=== PATIENT | female | born 1980 | race Two or more races ===

== ENCOUNTER 2017-04-03 13:03 | Inpatient (IN) | payer BC ==
[2017-04-03] MEDS ORDERED: KETOROLAC TROMETHAMINE 10 MG TABLET PO ONE (13:50)
[2017-04-03 13:51] VITALS: BMI 20.5
[2017-04-03] MEDS ORDERED: diazePAM 2 MG TABLET PO ONE (13:53)
--- NOTE | 2017-04-03 13:55 | PDOC ---
History of Present Illness - General History Source: Patient, Family, Significant Other Exam Limitations: No Limitations - History of Present Illness Initial Comments: 04/03/17 13:55 36F with pmh of tubal ligation presents with lumbar pain after a fall on her buttocks after she tried to catch her who lost balance, around 10:45am She hasn't been able to stand since then. 04/03/17 14:05 Occurred: reports: this morning Pain Location: reports: back <Richardson Logan - Last Filed: 04/03/17 15:41> <Natacha Gooden - Last Filed: 04/03/17 18:30> - General Chief Complaint: Back Pain Stated Complaint: LOWER BACK PAIN Time Seen by Provider: 04/03/17 13:30 Past History - Past Medical History Other medical history: NONE - Surgical History Abdominal Surgery: Yes (, Tubal ligation 9 years ago) - Reproductive History Is Patient Now?: No Tubal Ligation: Yes (9yrs ago) - Psycho/Social/Smoking Cessation Hx Anxiety: No Suicidal Ideation: No Smoking History: Never smoked Have you smoked in the past 12 months: No Information on smoking cessation initiated: No Hx Alcohol Use: No Drug/Substance Use Hx: No Substance Use Type: None <Richardson Logan - Last Filed: 04/03/17 15:41> <Natacha Gooden - Last Filed: 04/03/17 18:30> - Past Medical History Allergies/Adverse Reactions: Allergies Allergy/AdvReac Type Severity Reaction Status Date / Time Penicillins Allergy Verified 04/03/17 13:27 Home Medications: Ambulatory Orders NK [No Known Home Medication] 04/03/17 Review of Systems - Review of Systems Is the patient limited Tristanian proficient: Yes Constitutional: No: Chills, Diaphoresis, Fever, Loss of Appetite HEENTM: No: Symptoms Reported, Eye Pain, Double Vision Respiratory: No: Symptoms reported, Cough Cardiac (ROS): No: Symptoms Reported, Syncope ABD/GI: No: Symptoms Reported, Constipated, Diarrhea, Nausea : No: Symptoms Reported Musculoskeletal: Yes: See HPI Neurological: No: Headache, Numbness, Tingling <Richardson Logan - Last Filed: 04/03/17 15:41> *Physical Exam - Vital Signs Last Vital Signs Temp Pulse Resp BP Pulse Ox 98.4 F 80 18 134/64 100 04/03/17 13:27 04/03/17 13:27 04/03/17 13:27 04/03/17 13:27 04/03/17 13:27 - Physical Exam General Appearance: Yes: Nourished, Appropriately Dressed, Apparent Distress HEENT: positive: EOMI, HARMONY, Normal ENT Inspection, Normal Voice Neck: positive: Normal Thyroid, Supple Respiratory/Chest: positive: Lungs Clear, Normal Breath Sounds. negative: Chest Tender, Respiratory Distress Cardiovascular: positive: Regular Rhythm, Regular Rate, S1, S2 Vascular Pulses: Carotid (R): 2+, Carotid (L): 2+, Dorsalis-Pedis (R): 2+, Doralis-Pedis (L): 2+ Gastrointestinal/Abdominal: positive: Normal Bowel Sounds, Flat, Soft. negative : Tender Musculoskeletal: positive: Vertebral Tenderness (L2 to L4 tender to palpation. No paraspinal tenderness) Extremity: positive: Normal Inspection. negative: Normal Range of Motion Neurologic: positive: Fully Oriented, Alert. negative: Numbness, Sensory Deficit (pt unable to perform leg raise b/l due to pain,unable to keep legs raised b/l no pain reported during passive leg raise. normal strength and ROM on adduction/abduction of b/l legs as well as on dorsi/plantar flexion. ) <Richardson Logan - Last Filed: 04/03/17 15:41> - Vital Signs Last Vital Signs Temp Pulse Resp BP Pulse Ox 98.4 F 80 18 134/64 100 04/03/17 13:27 04/03/17 13:27 04/03/17 13:27 04/03/17 13:27 04/03/17 13:27 <Natacha Gooden - Last Filed: 04/03/17 18:30> ED Treatment Course - Medications Given in the ED: ED Medications Discontinued Medications Generic Name Dose Route Start Last Admin Trade Name Noelq PRN Reason Stop Dose Admin Diazepam 2 mg 04/03/17 13:53 04/03/17 14:32 Valium - PO 04/03/17 13:54 Not Given ONCE ONE Diazepam 5 mg 04/03/17 14:02 04/03/17 14:40 Valium - PO 04/03/17 14:03 5 mg ONCE ONE Administration Ketorolac Tromethamine 20 mg 04/03/17 13:50 04/03/17 14:31 Toradol PO 04/03/17 13:51 Not Given ONCE ONE Ketorolac Tromethamine 30 mg 04/03/17 14:02 04/03/17 14:40 Toradol Injection - IM 04/03/17 14:03 30 mg ONCE ONE Administration Oxycodone/Acetaminophen 1 combo 04/03/17 15:26 04/03/17 15:31 Percocet 5/325 - PO 04/03/17 15:27 1 combo ONCE ONE Administration <Natacha Gooden - Last Filed: 04/03/17 18:30> Medical Decision Making - Medical Decision Making 04/03/17 14:16 36yo w/pmh of tubal ligation present to the ED with lumbar pain after fall on her buttocks from standing position with 's weight. Xray ordered for evaluation, ordered Toradol and Valium for pain management. 04/03/17 15:26 8/10 on pain reassessment. Percocet ordered. Still waiting for spine Xray report. <Richardson Logan - Last Filed: 04/03/17 15:41> *DC/Admit/Observation/Transfer - Discharge Dispostion Admit: Yes <Richardson Logan - Last Filed: 04/03/17 15:41> <Natacha Gooden - Last Filed: 04/03/17 18:30> Diagnosis at time of Disposition: L1 vertebral fracture
[2017-04-03] MEDS ORDERED: diazePAM 5 MG TABLET PO ONE (14:02)
[2017-04-03] MEDS ORDERED: KETOROLAC TROMETHAMINE 30 MG/1 ML VIAL IM ONE (14:02)
[2017-04-03] MEDS ORDERED: diazePAM 5 MG TABLET ONE (14:33)
[2017-04-03] MEDS ORDERED: KETOROLAC TROMETHAMINE 30 MG/1 ML VIAL ONE (14:33)
--- NOTE | 2017-04-03 15:13 | PDOC ---
Attending Attestation - Resident Resident Name: Richardson Logan - ED Attending Attestation I have performed the following: I have examined & evaluated the patient, The case was reviewed & discussed with the resident, I agree w/resident's findings & plan, Exceptions are as noted - HPI HPI: 04/03/17 15:13 36-year-old female with no past medical history presents with lumbar spine pain since this morning. The patient's had syncopized onto the patient fell on top of her. The patient went on her buttocks. Since then patient has been having significant amount of pain but denies any urinary bowel incontinence. States that she has difficulty moving secondary to pain. Came in for evaluation. - Physicial Exam PE: 04/03/17 15:24 GENERAL: Awake, alert, and fully oriented, in no acute distress. HEAD: No signs of trauma EYES: PERRLA, EOMI, sclera anicteric, conjunctiva clear ENT: Auricles normal inspection, hearing grossly normal, nares patent, oropharynx clear without exudates. NECK: Normal ROM, supple, no lymphadenopathy, JVD, or masses LUNGS: Breath sounds equal, clear to auscultation bilaterally. No wheezes, and no crackles HEART: Regular rate and rhythm, normal S1 and S2, no murmurs, rubs or gallops ABDOMEN: Soft, nontender, normoactive bowel sounds. No guarding, no rebound. No masses EXTREMITIES: Normal range of motion, no edema. No clubbing or cyanosis. No cords, erythema, or tenderness NEUROLOGICAL: Cranial nerves II through XII grossly intact. Normal speech, normal gait SKIN: Warm, Dry, normal turgor, no rashes or lesions noted. BACK: TTP lumbarspine approx L4-L5, no step offs appreciated - Medical Decision Making 04/03/17 15:26 We'll need to obtain imaging for the lumbar spine to rule out fracture. Pain control reassess. Patient has a history of tubal ligation insists that she is not . If the pain is not control, we'll need to consider CT scan the lumbar spine. Pain control reassess. <Denis Mullins - Last Filed: 04/03/17 15:08> - Medical Decision Making 04/03/17 15:50-- Paged Dr. Pack via phone answering service. 04/03/17 18:30-- Paged Dr. Pack via phone answering service. 04/03/17 18:43-- Dr. Pack responded to the page and the patient's case was discussed. Documentation prepared by Natacha Gooden, acting as medical staff specialist for Denis Mullins MD <Natacha Gooden - Last Filed: 04/03/17 18:44>
[2017-04-03] MEDS ORDERED: OXYCODONE/APAP 5/325MG COMBO TABLET PO ONE (15:26)
[2017-04-03] MEDS ORDERED: OXYCODONE/APAP 5/325MG COMBO TABLET ONE (15:29)
--- NOTE | 2017-04-03 20:57 | HP ---
Admitting History and Physical - Primary Care Physician PCP: Leo Estevez - Admission History of Present Illness: 36-year-old female with no past medical history presents with lumbar spine pain since this morning. The patient's had syncopized onto the patient fell on top of her. The patient went on her buttocks. Since then patient has been having significant amount of pain but denies any urinary bowel incontinence. States that she has difficulty moving secondary to pain. - Past Medical History ...: No - Smoking History Smoking history: Never smoked Have you smoked in the past 12 months: No - Alcohol/Substance Use Hx Alcohol Use: No Home Medications - Allergies Allergies/Adverse Reactions: Allergies Allergy/AdvReac Type Severity Reaction Status Date / Time Penicillins Allergy Verified 04/03/17 13:27 - Home Medications Home Medications: Ambulatory Orders NK [No Known Home Medication] 04/03/17 Family Disease History - Family Disease History Family History: Denies Physical Examination Vital Signs: Vital Signs Temperature 98.6 F 04/03/17 20:20 Pulse Rate 66 04/03/17 20:20 Respiratory Rate 22 04/03/17 20:20 Blood Pressure 118/64 04/03/17 20:20 O2 Sat by Pulse Oximetry (%) 98 04/03/17 20:20 Constitutional: Yes: No Distress HENT: Yes: Atraumatic Neck: Yes: Supple Cardiovascular: Yes: Regular Rate and Rhythm Respiratory: Yes: CTA Bilaterally Gastrointestinal: Yes: Normal Bowel Sounds Musculoskeletal: Yes: Back Pain Extremities: Yes: WNL Neurological: Yes: Alert, Oriented Problem List - Problems (1) L1 vertebral fracture Assessment/Plan: PRN PAIN MEDS ORTHO EVAL Code(s): S32.019A - UNSP FRACTURE OF FIRST LUMBAR VERTEBRA, INIT FOR CLOS FX
[2017-04-03] MEDS: oxyCODONE HCL 5 MG TABLET PO PRN (21:00)
[2017-04-03] MEDS ORDERED: oxyCODONE HCL 5 MG TABLET ONE (21:15)
[2017-04-04] MEDS ORDERED: HYDROmorphone HCL CARPU-JECT 1 MG/1 ML DISP.SYRIN ONE (03:35)
[2017-04-04] MEDS ORDERED: HYDROmorphone HCL CARPU-JECT 1 MG/1 ML DISP.SYRIN IVPB PRN (04:04)
[2017-04-04] MEDS ORDERED: ONDANSETRON 4 MG/2 ML VIAL ONE (04:16)
[2017-04-04] MEDS ORDERED: ONDANSETRON 4 MG/2 ML VIAL IVPB ONE (06:00)
[2017-04-04] MEDS: oxyCODONE HCL 5 MG TABLET PO PRN ×2 (09:44→15:45)
--- NOTE | 2017-04-04 16:55 | CONSULT ---
Consult - History of Present Illness History of Present Illness: 36y/o female c/o lower back pain since yesterday morning. She fell hard onto her rear end and immediately had pain in her lower back. She went to the ER and was diagnosed with a L1 fracture. She denies any numbness or tingling. She denies any bowel or bladder symptoms. The pain is worse with movement and better with rest. - History Source History Provided By: Patient, Medical Record - Past Medical History ...: No - Alcohol/Substance Use Hx Alcohol Use: No - Smoking History Smoking history: Never smoked Have you smoked in the past 12 months: No Home Medications - Allergies Allergies/Adverse Reactions: Allergies Allergy/AdvReac Type Severity Reaction Status Date / Time Penicillins Allergy Verified 04/03/17 13:27 - Home Medications Home Medications: Ambulatory Orders Oxycodone HCl [Roxicodone -] 5 mg PO Q6H PRN #20 tablet MDD 2 04/06/17 Review of Systems - Review of Systems Constitutional: reports: No Symptoms Eyes: reports: No Symptoms HENT: reports: No Symptoms Neck: reports: No Symptoms Cardiovascular: reports: No Symptoms Respiratory: reports: No Symptoms Gastrointestinal: reports: No Symptoms Genitourinary: reports: No Symptoms Breasts: reports: No Symptoms Reported Musculoskeletal: reports: Back Pain Integumentary: reports: No Symptoms Neurological: reports: No Symptoms Endocrine: reports: No Symptoms Hematology/Lymphatic: reports: No Symptoms Psychiatric: reports: No Symptoms Physical Exam Vital Signs: Vital Signs Temperature 98.9 F 04/04/17 14:00 Pulse Rate 74 04/04/17 14:00 Respiratory Rate 20 04/04/17 14:00 Blood Pressure 107/63 04/04/17 14:00 O2 Sat by Pulse Oximetry (%) 98 04/04/17 04:58 Constitutional: Yes: Well Nourished, No Distress, Calm HENT: Yes: Atraumatic, Normocephalic Musculoskeletal: Yes: Other (Lower Back: No open wounds. Tenderness along L1. No other areas of tenderness. Negative straight leg test bilaterally.) Imaging - Results X-ray: Report Reviewed, Image Reviewed (L1 vertebral body superior endplate fracture) Assessment/Plan #1 L1 vertebral body fracture -OOB with PT as tolerated -ordered custom molded orthoplast clamshell tlso brace -pain control -F/u with Dr. Sanchez as outpatient next week
--- NOTE | 2017-04-04 19:03 | PN ---
Progress Note, Physician History of Present Illness: PAIN BETTER - Current Medication List Current Medications: Active Medications Oxycodone HCl (Roxicodone -) 5 mg PO Q6H PRN PRN Reason: PAIN Last Admin: 04/04/17 09:44 Dose: 5 mg Oxycodone HCl (Roxicodone -) 10 mg PO Q4H PRN PRN Reason: PAIN Last Admin: 04/04/17 15:45 Dose: 10 mg - Objective Vital Signs: Vital Signs Temperature 97.9 F 04/04/17 16:58 Pulse Rate 72 04/04/17 16:58 Respiratory Rate 20 04/04/17 16:58 Blood Pressure 112/60 04/04/17 16:58 O2 Sat by Pulse Oximetry (%) 98 04/04/17 04:58 Constitutional: Yes: No Distress HENT: Yes: Atraumatic Neck: Yes: Supple Cardiovascular: Yes: Regular Rate and Rhythm Respiratory: Yes: CTA Bilaterally Gastrointestinal: Yes: Normal Bowel Sounds Extremities: Yes: WNL Peripheral Pulses WNL: Yes Neurological: Yes: Alert, Oriented Problem List - Problems (1) L1 vertebral fracture Assessment/Plan: PRN PAIN MEDS ORTHO EVAL REVIEWED BRACE IS ORDERED PT EVAL Code(s): S32.019A - UNSP FRACTURE OF FIRST LUMBAR VERTEBRA, INIT FOR CLOS FX
[2017-04-05] MEDS: oxyCODONE HCL 5 MG TABLET PO PRN ×2 (02:18→12:31)
--- NOTE | 2017-04-05 11:26 | PN ---
Progress Note (short form) - Note Progress Note: Pt c/o back pain. aslo some discomfort into the left hip. Denies any radicular pain further down the leg AVSS tender to palpation T/L junction B/L LE neuro exam : 5/5 intact except left hip flexion 4/5, possibly limited by pain Xray: L1 superior endplate fracture, mild focal kyphosis Imp: L1 fx, mild kyphosis, left hip flexor weakness possibly related to pain -needs custom molded clamshell type orthoplast TLSO brace -will order MRI to better evaluate injury -keep bedrest with logrolls q2hrs, head of bed can be elevated to 30 deg, until MRI reviewed and brace obtained -torrie b/l LE for DVT prophylaxis -will follow.
[2017-04-05] MEDS ORDERED: RANITIDINE HCL 150 MG TABLET (FP) PO ONE (13:00)
--- NOTE | 2017-04-05 17:21 | PN ---
Progress Note, Physician History of Present Illness: PAIN BETTER - Current Medication List Current Medications: Active Medications Oxycodone HCl (Roxicodone -) 5 mg PO Q6H PRN PRN Reason: PAIN Last Admin: 04/05/17 02:18 Dose: 5 mg Oxycodone HCl (Roxicodone -) 10 mg PO Q4H PRN PRN Reason: PAIN Last Admin: 04/05/17 12:31 Dose: 10 mg - Objective Vital Signs: Vital Signs Temperature 98.6 F 04/05/17 15:24 Pulse Rate 67 04/05/17 15:24 Respiratory Rate 67 H 04/05/17 15:24 Blood Pressure 116/67 04/05/17 15:24 O2 Sat by Pulse Oximetry (%) 98 04/05/17 02:27 Constitutional: Yes: No Distress HENT: Yes: Atraumatic Neck: Yes: Supple Cardiovascular: Yes: Regular Rate and Rhythm Respiratory: Yes: CTA Bilaterally Gastrointestinal: Yes: Normal Bowel Sounds Musculoskeletal: Yes: Back Pain, Other (POINT TENDERNESS L1) Extremities: Yes: WNL Problem List - Problems (1) L1 vertebral fracture Assessment/Plan: PRN PAIN MEDS BRACE ORDERED PT EVAL Code(s): S32.019A - UNSP FRACTURE OF FIRST LUMBAR VERTEBRA, INIT FOR CLOS FX
[2017-04-05] MEDS ORDERED: BISACODYL 10 MG SUPP.RECT RC PRN (19:35)
--- NOTE | 2017-04-06 16:06 | PN ---
Progress Note, Physician History of Present Illness: PAIN BETTER - Current Medication List Current Medications: Active Medications Bisacodyl (Dulcolax Suppository -) 10 mg RC PRN PRN PRN Reason: CONSTIPATION Last Admin: 04/05/17 20:50 Dose: 10 mg Oxycodone HCl (Roxicodone -) 5 mg PO Q6H PRN PRN Reason: PAIN Last Admin: 04/05/17 02:18 Dose: 5 mg Oxycodone HCl (Roxicodone -) 10 mg PO Q4H PRN PRN Reason: PAIN Last Admin: 04/05/17 12:31 Dose: 10 mg - Objective Vital Signs: Vital Signs Temperature 98.2 F 04/06/17 15:21 Pulse Rate 83 04/06/17 15:21 Respiratory Rate 16 04/06/17 15:21 Blood Pressure 104/60 04/06/17 15:21 O2 Sat by Pulse Oximetry (%) 98 04/06/17 03:00 Constitutional: Yes: No Distress HENT: Yes: Atraumatic Neck: Yes: Supple Cardiovascular: Yes: Regular Rate and Rhythm Respiratory: Yes: CTA Bilaterally Gastrointestinal: Yes: Normal Bowel Sounds Extremities: Yes: WNL Neurological: Yes: Alert, Oriented Problem List - Problems (1) L1 vertebral fracture Assessment/Plan: PRN PAIN MEDS BRACE ORDERED PT EVAL Code(s): S32.019A - UNSP FRACTURE OF FIRST LUMBAR VERTEBRA, INIT FOR CLOS FX
--- NOTE | 2017-04-06 16:21 | CONSULT ---
Consult - text type - Consultation Consultation Note:
--- NOTE | 2017-04-06 16:22 | PN ---
Progress Note (short form) - Note Progress Note: S: Patient feeling better. Still with back pain. Notes that her hip pain has improved slightly. Denies radicular pain, paresthesais. O: Vital Signs Temperature 98.2 F 04/06/17 15:21 Pulse Rate 83 04/06/17 15:21 Respiratory Rate 16 04/06/17 15:21 Blood Pressure 104/60 04/06/17 15:21 O2 Sat by Pulse Oximetry (%) 98 04/06/17 03:00 VSS. NAD. Afebrile. Laying comfortably in bed. Lumbar spine exam: No deformities or skin lesions Tender thoracic lumbar junction. No paraspinal muscle tenderness. Negative straight leg test bilaterally. EHL/FHL intact. NVID. Lumbar spine MRI images and report reviewed by myself and Dr. Sanchez confirming an acute L1 superior endplate fracture. A/P: 36-year-old female with no past medical history admitted with an acute L1 compression fracture -Lumbar spine weight-bearing x-ray in TLSO brace ordered -Start PT -D/C home -Follow up out-pt with Dr. Sanchez in 1-2 weeks -Case discussed with Dr. Sanchez who was in agreement with the above clinical treatment plan.
[2017-04-06] MEDS: oxyCODONE HCL 5 MG TABLET PO PRN (21:50)
[2017-04-07 10:07] VITALS: BP 114/63; PULSE 86; TEMP 99.2
--- NOTE | 2017-04-07 19:08 | DS ---
Physical Examination Vital Signs: Vital Signs Temperature 99.2 F 04/07/17 10:00 Pulse Rate 86 04/07/17 10:00 Respiratory Rate 20 04/07/17 10:00 Blood Pressure 114/63 04/07/17 10:00 O2 Sat by Pulse Oximetry (%) 99 04/07/17 11:00 Discharge Summary Reason For Visit: FX OF FIRST LUMBAR VERTEBRA - Instructions Diet, Activity, Other Instructions: OOB with back brace only Report any increased back pain or weakness to MD Disposition: HOME - Home Medications Comprehensive Discharge Medication List: Ambulatory Orders Oxycodone HCl [Roxicodone -] 5 mg PO Q6H PRN #20 tablet MDD 2 04/06/17 in home
== END 2017-04-07 13:30 | disposition home or self-care (01) | DRG 552 ==
LOC: JER 13:03 → JERBED 15:41 → J8W 22:09
PROVIDERS: ADMIT Internal Medicine; ATTEND Internal Medicine
DX: S32.018A Other fracture of first lumbar vertebra, initial encounter for closed fracture (principal); W19.XXXA Unspecified fall, initial encounter; Y93.9 Activity, unspecified; Y92.89 Other specified places as the place of occurrence of the external cause; Y99.9 Unspecified external cause status
CPT/HCPCS: 72100-TC; 72148-TC; 97116-GP; 97161-GP; 99282-25